=== PATIENT | female | born 1945 | race Caucasian/White ===

== ENCOUNTER 2022-08-09 23:50 | Observation (INO) | payer MEDICARE ==
[~2022-08-09] VITALS: Ht 165.1 cm; Wt 65.9 kg
[2022-08-10 00:48] LABS: BASOPHILS # (AUTO) 0.1 X10'3 (0-0.2); BASOPHILS % (AUTO) 0.9 % (0-1); EOSINOPHILS # (AUTO) 0.2 X10'3 (0-0.9); EOSINOPHILS % (AUTO) 2.7 % (0-6); HEMATOCRIT 41.5 % (35.0-45.0); HEMOGLOBIN 14.2 g/dl (12.0-16.0); LYMPHOCYTES # (AUTO) 1.5 X10'3 (1.1-4.8); LYMPHOCYTES % (AUTO) 24.5 % (21-51); MEAN CORPUSCULAR HEMOGLOBIN 32.6 PG (27.0-31.0); MEAN CORPUSCULAR HGB CONC 34.1 g/dL (33.0-36.5); MEAN CORPUSCULAR VOLUME 95.4 FL (78-98); MONOCYTES # (AUTO) 0.4 X10'3 (0-0.9); NEUTROPHILS # (AUTO) 3.9 X10'3 (1.8-7.7); NEUTROPHILS % (AUTO) 64.9 % (42-75); PLATELET COUNT 218 X10'3 (140-440); RED BLOOD COUNT 4.35 X10'6 (4.20-5.60); RED CELL DISTRIBUTION WIDTH 13.2 % (11.5-14.5)
[2022-08-10 01:02] LABS: ALANINE AMINOTRANSFERASE 23 U/L (12-78); ALBUMIN/GLOBULIN RATIO 1.6 (1.1-1.5); ALKALINE PHOSPHATASE 107 IU/L (46-116); ANION GAP 5 (8-16); ASPARTATE AMINO TRANSFERASE 23 U/L (10-37); BILIRUBIN,TOTAL 0.4 MG/DL (0.1-1.0); BLOOD UREA NITROGEN 19 MG/DL (7-18); BUN/CREATININE RATIO 22.1 (10.0-20.0); CALCIUM 9.4 MG/DL (8.5-10.1); CHLORIDE 102 MMOL/L (99-107); CREATININE 0.86 MG/DL (0.40-0.90); GLUCOSE 127 MG/DL (70-104); POTASSIUM 3.8 MMOL/L (3.5-5.1); SODIUM 136 MMOL/L (135-145); TOTAL CARBON DIOXIDE 29.3 MMOL/L (24-32); TOTAL PROTEIN 6.5 G/DL (6.4-8.2); eGFR 64 ML/MIN
[2022-08-10] MEDS ORDERED: magnesium hydroxide 30ml (MOM) UD suspension PO PRN (02:30)
[2022-08-10] MEDS ORDERED: ondansetron/PF 4mg/2ml inj IV PRN (02:30)
[2022-08-10] MEDS ORDERED: magnesium 4gm in 100ml NS 100 ML IV PRN (02:30)
[2022-08-10] MEDS ORDERED: magnesium Cl slow-release 64mg tablet PO PRN (02:30)
[2022-08-10] MEDS ORDERED: PERFLUTREN PROTEIN-A MICROSPHR (Optison) 0.22 MG/ML 3ML VIAL IV PRN (02:30)
[2022-08-10] MEDS ORDERED: potassium Cl 20 mEq SR tablet PO PRN ×2 (02:30)
[2022-08-10] MEDS ORDERED: magnesium 2GM in 50ml NS 50 ML IV PRN (02:30)
[2022-08-10] MEDS ORDERED: potassium Cl 40MEQ/1/2NS 520ml 520 ML IV PRN (02:30)
[2022-08-10] MEDS ORDERED: acetaminophen 325mg tablet PO PRN (02:30)
[2022-08-10] MEDS ORDERED: mag hydrox/Alum hydrox/simeth 30ml oral suspension PO PRN (02:30)
[2022-08-10] MEDS ORDERED: metoprolol tartrate 25mg tablet PO ONE (02:35)
[2022-08-10 03:55] LABS: POTASSIUM 3.6 MMOL/L (3.5-5.1)
[2022-08-10] MEDS ORDERED: FLUO-1 PO (05:32)
--- NOTE | 2022-08-10 05:45 | NUR ---
Received pt. from ER per wheelchair in fair condition no c/o pain or discomfort ambulatory to BR. Pt. has a peripheral SL. Plan for Echo today.
[2022-08-10 05:59] VITALS: BP 143/75
--- NOTE | 2022-08-10 06:59 | NUR ---
Patient in room PCU 3023. I have received report from JOSEPHINE,RN, and had the opportunity to ask questions and assume patient care. PT AWAKE, NO NEEDS IDENTIFIED AT THIS TIME. WILL CONTINUE TO MONITOR.
--- NOTE | 2022-08-10 07:00 | NUR ---
Patient in room PCU 3023. I have received report from AISHA Ferrara and had the opportunity to ask questions and assume patient care. Pt is NAD, resting comfortably, will continue to monitor.
--- NOTE | 2022-08-10 07:08 | NUR ---
PAGE SENT PAGER ID: [phone] MESSAGE: [id number], ASIF ROGERS, CRITICAL LAB: TROP 53. THANK YOU, LISSETTE [id number]
[2022-08-10 07:33] VITALS: BP 141/65
[2022-08-10] MEDS ORDERED: K and/or MAG REPLACEMENT MC SCH (08:00)
[2022-08-10] MEDS ORDERED: FLUoxetine 20mg capsule PO SCH (08:00)
[2022-08-10] MEDS ORDERED: docusate sod 100mg capsule PO SCH (08:00)
[2022-08-10] MEDS ORDERED: heparin, porcine 5000 units/ml vial SQ SCH (08:00)
[2022-08-10 11:23] VITALS: BP 135/72
--- NOTE | 2022-08-10 13:55 | NUR ---
PAGE SENT PAGER ID: [phone] MESSAGE: [id number], SUJIT EPSTEIN'S PRELIMINARY REPORT: EF 55-60%. THANK YOU, LISSETTE [id number]
[2022-08-10] MEDS ORDERED: METO50TA16 PO (14:09)
--- NOTE | 2022-08-10 15:41 | NUR ---
Discharged pt at 15:30 to who is at bedside. Pt's PIV removed no s/sx of infection. Pt's Tele box removed. Discharge paperwork given, pt educated on medication changes and questions answered. Pt denies CP, SOB and heart palpitations at time of discharge. 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 Pt to follow up with PCP and [employer] within the next week. Pt wheeled out to private vehicle by hospital staff. Pt in NAD at time of discharge.
--- NOTE | 2022-08-10 15:44 | NUR ---
Student documentation: I have reviewed and agree with all interventions, assessments performed and documented by AISHA MCLAUGHLIN. Student Medication Administration: For this medication-pass time frame, all medication were reviewed, dispensed, administered and documented per hospital policy by AISHA MCLAUGHLIN.
== END 2022-08-10 15:30 | disposition home or self-care (01) ==
LOC: ER 23:51 → ED HOLD 08-10 02:29 → PCU 3S 08-10 05:31
PROVIDERS: ADMIT Internal Medicine; ATTEND Internal Medicine
DX: I47.20 Ventricular tachycardia, unspecified (principal); I10 Essential (primary) hypertension; I48.91 Unspecified atrial fibrillation; F41.9 Anxiety disorder, unspecified; Z79.899 Other long term (current) drug therapy
CPT/HCPCS: 36415; 71045; 80053; 83735; 83880; 84132; 84484; 85025; 87081; 93005; 93306; 96372; 99284; G0378; J1644